=== PATIENT | male | born 1975 | race Caucasian/White ===

== ENCOUNTER → 2023-09-05 | Outpatient (CLI) | payer OTHER, SELFPAY ==
[2023-09-05 08:50] LABS: Absolute Lymphocyte Count 1.56 X10^3/uL (0.83-4.51); Absolute Neutrophil Count 2.4 X10^3/uL (2.0-7.7); Basophil# 0.09 X10^3/uL; Basophil% 1.8 % (0-1); Eosinophil# 0.32 X10^3/uL; Eosinophils% 6.6 % (0-5); Hematocrit 42.1 % (40-54); Hemoglobin 13.4 g/dL (13.0-16.5); Lymphocyte # 1.56 X10^3/ul (0.83-4.51); Mean Corp Hgb Conc 31.8 g/dL (32-36); Mean Corpuscular Hgb 28.2 pg (27.0-32.0); Mean Corpuscular Volume 88.6 fL (80-94); Mean Platelet Vol. 10.1 fl (6.2-12.0); Monocyte# 0.46 X10^3/uL; Monocyte% 9.4 % (0-10); NRBC Flagged by Analyzer 0 % (0-5); Neutrophil # 2.44 X10^3/uL (2.7-7.7); Platelet Count 230 K/mm3 (150-450); RBC Distribution Width CV 12.1 % (11.6-14.6); RBC Distribution Width SD 39.8 fl (35.1-43.9); Red Blood Count 4.75 M/mm3 (4.6-6.2); White Blood Count 4.9 K/mm3 (4.4-11.0)
[2023-09-05 09:22] LABS: AST(SGOT) 16 U/L (15-37); Alanine Aminotransfer ALT/SGPT 28 U/L (16-61); Albumin, Serum 3.5 g/dL (3.2-5.0); Alkaline Phosphatase 30 U/L (45-117); Anion Gap 7 (5-15); BUN 23 mg/dL (7-18); BUN/Creat Ratio 23.2 RATIO (10-20); Calcium,Total 8.8 mg/dL (8.5-10.1); Chloride 105 mmol/L (98-107); Cholesterol 211 mg/dL (200); Creatinine, Serum 0.99 mg/dL (0.70-1.30); EST Glomerular Filtration Rate 86 mL/min (>60); Est Glom Filt Rate - Afr Amer 105 mL/min (>60); Globulin 3.4 g/dL (2.2-4.2); Glucose 102 mg/dL (74-106); High Density Lipoprotein 48 mg/dL; Potassium 4.7 mmol/L (3.5-5.1); Protein, Total 6.9 g/dL (6.4-8.2); Sodium Level 139 mmol/L (136-145); Triglycerides 107 mg/dL; Very Low Density Lipoprotein 21 mg/dL (5-40)
== END | disposition home or self-care (01) ==
PROVIDERS: PCP Internal Medicine; Referring Provider Internal Medicine; Visit Provider Internal Medicine
DX: Z00.00 Encounter for general adult medical examination without abnormal findings (principal)
CPT/HCPCS: 36415; 80053; 80061; 84153; 85025; G0103

== ENCOUNTER → 2023-09-10 | Outpatient (CLI) | payer OTHER, SELFPAY ==
--- NOTE | 2023-09-10 07:39 | EKG12_ITS ---
Test Reason : ROUTINE Blood Pressure : / mmHG Vent. Rate : 055 BPM Atrial Rate : 055 BPM P-R Int : 144 ms QRS Dur : 108 ms QT Int : 408 ms P-R-T Axes : 039 058 023 degrees QTc Int : 390 ms Sinus bradycardia Otherwise normal ECG Confirmed by JOSIE MCKENZIE, ARTHUR ([id number]), health editor BEN GRAJEDA ([id number]) on 09/10/2023 1:30:20 PM Referred By: Darius Armstrong Confirmed By:ARTHUR GALINDO MD
== END | disposition home or self-care (01) ==
PROVIDERS: PCP Internal Medicine; Referring Provider Internal Medicine; Visit Provider Internal Medicine
DX: E78.5 Hyperlipidemia, unspecified (principal)
CPT/HCPCS: 93005

== ENCOUNTER 2024-01-15 06:54 | Day surgery (SDC) | payer OTHER, SELFPAY ==
[2024-01-15] VITALS (8 sets, daily range): BP systolic 107–118; BP diastolic 67–85; PULSE 16–68; RESP 14–18; TEMP 36.1–36.7; O2SAT 97–99
--- NOTE | 2024-01-15 07:07 | PCM.HP.STD ---
[facility] - General General Date of Admission: 01/15/24 Date of Service: 01/15/24 Chief Complaint: Screening colonoscopy HPI Narrative MAGUE ZURITA, is a 48 M who presents today for screening colonoscopy. He has never had a colonoscopy in the past. He does not have any abdominal pain. Is not any cramping. Denies any chest pain or shortness of breath. Overall is in very good health. He does not take any medicines on a daily basis. [facility] Medical History (Updated 01/13/24 @ 08:44 by Deidre Zabala) Wears glasses Wears contact lenses Alcohol use Anemia Back pain Injury of back Chewing tobacco dependence Hyperlipidemia Colon cancer screening Preventative health care Seasonal allergies Arthritis Home Medications ?Medication ?Instructions ?Recorded ?Last Taken ?Type NK 12/18/23 Unknown History Allergy/AdvReac Type Severity Reaction Status Date / Time No Known Allergies Allergy Verified 01/13/24 08:39 Family History Mother Cancer cervical Breast cancer Hypertension Father Hypertension Arthritis Surgical History (Updated 01/13/24 @ 08:44 by Deidre Zabala) Hx of appendectomy Hx of spinal surgery H/O spinal fusion Social History adopted: No household members: spouse and children number of children: 2 current occupational status: employed current occupation: [employer] pets and animals: Yes (2) pets and animals: cat(s) sexually active: Yes Smoking Status: Current every day smoker tobacco type: smokeless tobacco Tobacco: How many years used: 30 Smokeless tobacco user: chewing tobacco alcohol intake: current alcohol intake frequency: a few times a month substance use type: does not use diet: ideal protein and low carbohydrate well-balanced diet: daily or most days caffeine: Yes (1) Type: coffee frequency: 3-4 times per week seatbelt use: always do you feel safe at home: Yes ROS Review of Systems ROS Unobtainable: other Constitutional Constitutional: Denies fatigue, fever(s), poor appetite, weight gain or weight loss ENT HEENT: Denies mouth lesions Cardiovascular Cardiovascular: Denies abdominal bloating, abdominal edema or abdominal pain Respiratory/Chest Respiratory/Chest: Denies change in mental status, change in phlegm color, chest congestion or chest tightness Gastrointestinal Gastrointestinal: Denies belching, bloating, change in bowel habits, change in stool character, chewing difficulty, coffee ground emesis, constipation, cramping, diarrhea, dyspepsia, dysphagia, early satiety, excessive flatus, fecal incontinence, heartburn, hematemesis, hematochezia, hemorrhoids, loose stools, melena, nausea, odynophagia, rectal bleeding, tenesmus, vomiting or weight changes Genitourinary Genitourinary: Denies abdominal discomfort, burning urination or itching Musculoskeletal Musculoskeletal: Reports as per HPI; Denies muscle weakness or myalgias Integumentary Integumentary: Denies jaundice Neurologic Neurologic: Denies lack of coordination or weakness Psychiatric Psychiatric: Denies confusion, depression, memory loss, mood swings, paranoia or suicidal ideation Endocrine Endocrinology: Denies systems reviewed and no addt'l complaints, except as documented Hematologic/Lymphatic Hematologic/Lymphatic: Denies anemia, easy bleeding, easy bruising or lymphadenopathy Allergic/Immunologic Allergic/Immunologic: Denies systems reviewed and no addt'l complaints, except as documented Physical Exam Const alert General Appearance: cooperative Orientation / Consciousness: oriented to person HEENT hearing grossly normal bilaterally Head and Scalp: normal to inspection Face and Sinus: face symmetric Nose: external nose normal Mouth: oral and palatal mucosa normal Eyes conjunctivae normal General Eye: normal appearance of both eyes Neck full ROM General: normal visual inspection Lymph Lymphatic: no lymphadenopathy noted Chest inspection of chest normal and palpation of chest normal Chest: symmetrical chest wall rise Resp normal respiratory effort Effort and Inspection: able to speak in complete sentences Cardio regular rate GI non-distended Percussion: normal to percussion Rectal Exam: deferred Neuro Speech: speech normal Gait (Neuro): normal gait Assessment & Plan Assessment/Plan (1) Encounter for screening for malignant neoplasm of colon: PLAN: He was explained alternatives, risk, benefits including not withstanding bleeding, infection, sepsis, perforation, need for emergent surgery . He will have an ASA of 3.
--- NOTE | 2024-01-15 07:48 | PRE.ANES_ITS ---
ASA Classification* ASA Classification ASA Classification: 3 Assessment & Plan Anesthesia* Anesthesia Assessment Anesthesia Assessment: Discussed sedation and/or anesthesia options, risks, benefits, and alternatives with patient/parents/legal guardian/POA. Questions invited. The patient/parents/legal guardian/POA seems to understand and agrees to proceed with anesthesia plan. Reviewed the physical assessment, medical history, allergy history and patient home medications list prior to surgery/procedure/anesthetic and documented any changes. Performed airway and anesthesia risk assessments. Anesthesia Type Anesthesia Type: MAC (see written pre anesthesia record for full assessment) Anesthesia Focused Assessment* Temperature: 97.8 F Pulse Rate: 58 Blood Pressure: 114/70 Respiratory Rate: 18 Pulse Ox: 99 Airway Assessment Mouth opens: >3 cm Mallampati Score: II Focused Labs Anesthesia Preop lab: CBC WBC 4.9 K/mm3 (4.4-11.0) 09/05/23 08:06 RBC 4.75 M/mm3 (4.6-6.2) 09/05/23 08:06 Hgb 13.4 g/dL (13.0-16.5) 09/05/23 08:06 Hct 42.1 % (40-54) 09/05/23 08:06 Plt Count 230 K/mm3 (150-450) 09/05/23 08:06 CHEMISTRY Potassium 4.7 mmol/L (3.5-5.1) 09/05/23 08:06 Sodium 139 mmol/L (136-145) 09/05/23 08:06 BUN 23 mg/dL (7-18) H 09/05/23 08:06 Creatinine 0.99 mg/dL (0.70-1.30) 09/05/23 08:06 Glucose 102 mg/dL (74-106) 09/05/23 08:06 COAG Pre-Assessment Diagnosis/Proposed Procedure Planned Operative Procedure(s): COLONOSCOPY-OA Anesthesia History 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 When Was Last Pacemaker Check QUESTION #4 FULL TEXT: You/Your Family Experience fever (hyperthermia) with Anesthesia Last Oral Intake Last Oral intake: Last Oral Intake NPO since 22:00 01/15/24 07:23 Meds taken in AM with sips of No 01/15/24 07:23 water? 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 Female No 01/13/24 08:44 HX of Motion Sickness No 01/13/24 08:44 HX of N/V After Surgery No 01/13/24 08:44 Non-Smoker No 01/13/24 08:44 Duration of Surgery greater No 01/13/24 08:44 than 60 minutes Number of Risk Factors PONV Score Height & Weight Height & Weight: Anesthesia: Height & Weight Height 6 ft 4 in 01/15/24 07:23 Weight: 112 kg 01/15/24 07:23 Body Mass Index (BMI) 30.0 01/15/24 07:23 Respiratory Assessment Respiratory Assessment - magnetic grinder operator: Respiratory Tract Infection Hx - magnetic grinder operator Hx Respiratory Tract Infection No 01/13/24 08:44 STOP Sleep Apnea STOP Sleep Apnea - magnetic grinder operator: STOP Sleep Apnea - magnetic grinder operator Hx Hypertension No 01/13/24 08:44 Hx Sleep Apnea No 01/13/24 08:44 CPAP No 01/13/24 08:44 BIPAP No 01/13/24 08:44 Do you snore loudly (louder No 01/13/24 08:44 than talking or can be heard Do you often feel tired/ No 01/13/24 08:44 fatigued/ sleepy during daytime? Has anyone observed you stop No 01/13/24 08:44 breathing during sleep? STOP Results Negative 01/13/24 08:44 QUESTION #5 FULL TEXT : Do you snore loudly (louder than talking or can be heard through closed doors)? 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 Specify any problems Hx of Preganancy in last 3 N/A 01/13/24 08:44 Months Nurse Filling Out Transfusion VCHRISTIN 01/13/24 08:44 & Questions: Date: 01/13/24 01/13/24 08:44 Time: 08:46 01/13/24 08:44 Patient unable to answer at this time (ie. confused, unrespo /Reproduction History /Reproductive History - magnetic grinder operator: /Reproductive Hx- magnetic grinder operator Hx Now Gestational Age (in weeks): EDC: Hx Hx Para Hx Section SAB PFSH Medical History Wears glasses Wears contact lenses Alcohol use Anemia Back pain Injury of back Chewing tobacco dependence Hyperlipidemia Colon cancer screening Preventative health care Seasonal allergies Arthritis Home Medications ?Medication ?Instructions ?Recorded ?Last Taken ?Type NK 12/18/23 Unknown History Allergy/AdvReac Type Severity Reaction Status Date / Time No Known Allergies Allergy Verified 01/15/24 07:22 Family History Mother Cancer cervical Breast cancer Hypertension Father Hypertension Arthritis Surgical History Hx of appendectomy Hx of spinal surgery H/O spinal fusion Social History adopted: No household members: spouse and children number of children: 2 current occupational status: employed current occupation: [employer] pets and animals: Yes (2) pets and animals: cat(s) sexually active: Yes Smoking Status: Current every day smoker tobacco type: smokeless tobacco Tobacco: How many years used: 30 Smokeless tobacco user: chewing tobacco alcohol intake: current alcohol intake frequency: a few times a month substance use type: does not use diet: ideal protein and low carbohydrate well-balanced diet: daily or most days caffeine: Yes (1) Type: coffee frequency: 3-4 times per week seatbelt use: always do you feel safe at home: Yes Review of Systems (Anesthesia) ROS Narrative System reviewed and no additional complaints, except as documented.
--- NOTE | 2024-01-15 08:40 | PCM.POST.ANE ---
Anesthesia: Postop Eval I Current Vital Signs Temperature: 97 F Pulse Rate: 16 Blood Pressure: 107/85 Respiratory Rate: 16 Pulse Ox: 97 Oxygen Delivery Method: Room Air Assessment Airway patent: Yes Spontaneous unlabored respirations: Yes Mental status: Awake and Calm nausea: No Vomiting: No Anesthesia Complication: No Fluid Hydration Crystalloid volume administer (ml): 40 Total IV fluid infused: 40 Progress Note Anesthesia document: Postop Eval 1 completed: Yes
--- NOTE | 2024-01-15 08:47 | PCM.POSTANE2 ---
Anesthesia Postop Eval I Sum Postop Eval Completion status Anesthesia document: Postop Eval 1 completed: Yes Anesthesia Postop Eval I Summary Anesthesia Postop Eval I Summary: Anesthesia Postop Eval I: Assessment Summary Airway patent Yes 01/15/24 08:41 [email or web address] Spontaneous unlabored Yes 01/15/24 08:41 [email or web address] respirations Mental status Awake,Calm 01/15/24 08:41 [email or web address] nausea No 01/15/24 08:41 [email or web address] Vomiting No 01/15/24 08:41 [email or web address] Anesthesia Postop Eval I: Fluid Summary Crystalloid volume administer 40 01/15/24 08:41 [email or web address] (ml) Colloids volume administered ( ml) Blood Product volume administered (ml) Total IV fluid infused 40 01/15/24 08:41 [email or web address] Anesthesia Postop Eval I: Summary Notes Anesthesia Complication No 01/15/24 08:41 [email or web address] Anesthesia Complication Comment: Post-operative progress note Anesthesia: Postop Eval II Evaluation Mental status: Awake Pain Level: 0 nausea: No Vomiting: No
--- NOTE | 2024-01-19 15:26 | OP.COLON_ITS ---
Patient Name: Librado Llanos Procedure Date: 01/15/2024 8:12 AM Date of : 1975 Age: 48 Procedure: Colonoscopy Indications: Screening for colorectal malignant neoplasm Providers: Riaz Schneider DO Referring MD: Riaz Schneider DO Medicines: Monitored Anesthesia Care Patient Profile: This is a 48 year old male. Refer to note in patient chart for documentation of history and physical. Last Colonoscopy: none. The patient's first colonoscopy is today. Complications: No immediate complications. Procedure: Pre-Anesthesia Assessment: - Prior to the procedure, a History and Physical was performed, and patient medications and allergies were reviewed. The patient is competent. The risks and benefits of the procedure and the sedation options and risks were discussed with the patient. All questions were answered and informed consent was obtained. Patient identification and proposed procedure were verified by the physician in the pre-procedure area. Mental Status Examination: alert and oriented. Airway Examination: normal oropharyngeal airway and neck mobility. Respiratory Examination: clear to auscultation. CV Examination: normal. Prophylactic Antibiotics: The patient does not require prophylactic antibiotics. Prior Anticoagulants: The patient has taken no anticoagulant or antiplatelet agents. ASA Grade Assessment: II - A patient with mild systemic disease. After reviewing the risks and benefits, the patient was deemed in satisfactory condition to undergo the procedure. The anesthesia plan was to use monitored anesthesia care (MAC). Immediately prior to administration of medications, the patient was re-assessed for adequacy to receive sedatives. The heart rate, respiratory rate, oxygen saturations, blood pressure, adequacy of pulmonary ventilation, and response to care were monitored throughout the procedure. The physical status of the patient was re-assessed after the procedure. After I obtained informed consent, the scope was passed under direct vision. Throughout the procedure, the patient's blood pressure, pulse, and oxygen saturations were monitored continuously. The Colonoscope was introduced through the anus and advanced to the cecum, identified by appendiceal orifice and ileocecal valve. The colonoscopy was performed without difficulty. The patient tolerated the procedure well. The quality of the bowel preparation was adequate. The ileocecal valve, appendiceal orifice, and rectum were photographed. Scope In: 8:22:11 AM Scope Withdrawal Time 0 hours 6 minutes 49 seconds Scope Out: 8:32:16 AM Total Procedure Duration Time 0 hours 10 minutes 5 seconds Findings: The perianal and digital rectal examinations were normal. The entire examined colon appeared normal on direct and retroflexion views. Impression: - The entire examined colon is normal on direct and retroflexion views. - No specimens collected. Recommendation: - Discharge patient to home. - Resume previous diet. - Continue present medications. - Repeat colonoscopy in 10 years for screening purposes. Procedure Code(s): --- Professional --- G0121, Colorectal cancer screening; colonoscopy on individual not meeting criteria for high risk CPT copyright 2021 [employer]. All rights reserved. The codes documented in this report are preliminary and upon ranch hand supervisor review may be revised to meet current compliance requirements. Riaz Schneider DO 01/15/2024 8:35:54 AM This report has been signed electronically. Number of Addenda: 0 Note Initiated On: 01/15/2024 8:12 AM
--- NOTE | 2024-01-19 15:26 | OP.CCLET_ITS ---
01/15/2024 Darius Armstrong MD [address] [place] [address] [place] [address] Re : Colonoscopy procedure for Librado Healyber Dear Dr. Armstrong This procedure was performed on December. My impressions and recommendations are as follows: Impressions : - The entire examined colon is normal on direct and retroflexion views. - No specimens collected. Recommendations : - Discharge patient to home. - Resume previous diet. - Continue present medications. - Repeat colonoscopy in 10 years for screening purposes. My findings are described in the full procedure note, which is enclosed. If I can be of further assistance, please feel free to contact me at . Sincerely, Riaz Schneider, 01/15/2024 8:35:54 AM This report has been signed electronically.
== END 2024-01-15 09:19 | disposition home or self-care (01) ==
LOC: EN 06:54 → AC 06:56
PROVIDERS: PCP Internal Medicine; Referring Provider Internal Medicine; Visit Provider Internal Medicine Gastroenterology
PROC: 0DJD8ZZ Inspection of Lower Intestinal Tract, Via Natural or Artificial Opening Endoscopic (ICD-10-PCS; CPT 45378; principal; 2024-01-15 07:55)
DX: Z12.11 Encounter for screening for malignant neoplasm of colon (principal); Z90.49 Acquired absence of other specified parts of digestive tract; F17.220 Nicotine dependence, chewing tobacco, uncomplicated
CPT/HCPCS: 45378; J2405